=== PATIENT | female | born 1975 | race Caucasian/White ===

== ENCOUNTER 2020-08-24 21:34 | Emergency (ER) | payer OTHER ==
[~2020-08-24] VITALS: Ht 147.3 cm; Wt 99.8 kg
[~2020-08-24 21:34] MED LIST: ACETAMINOPHEN-1 EAC1 PO; AZITHROMYCIN 2250 MG PO; BETABLOCKER; BUTALB-APAP-CA1 EACH PO; CELEXA 20 MG TA20 MG; CELEXA 20 MG TA20 MG PO; CELEXA20 MG PO; FIORICET 50-321 EACH PO; LISINOPRIL20 MG PO; NOHOMEMEDICATIONS; ONDANSETRON HCL4 M2 PO; PHENERGAN 25 MG25 M1 PO; PROMETHAZINE V473 ML PO; PROVENTIL HFA6.7 G1 INH; TESSALON PERLE100 MG PO; TOPAMAX 25 MG T25 M1 PO; VICODIN 5-5001 EACH PO; WELLBUTRIN 75 M75 M1 PO; ZPAK PO
[2020-08-24] MEDS ORDERED: PROZAC 10 MG CA10 MG PO (21:50)
[2020-08-24] MEDS ORDERED: ALLEGRA ALLERGY60 MG PO (21:50)
[2020-08-24] MEDS ORDERED: FAMOTIDINE 20 M20 MG PO (21:50)
[2020-08-24] MEDS ORDERED: XYZAL5 MG PO (21:51)
[2020-08-24 22:14] LABS: INFLUENZA A ANTIGEN Negative (Negative); INFLUENZA B ANTIGEN Negative (Negative)
[2020-08-24] MEDS ORDERED: PHENERGAN 25 MG25 M1 PO (23:56)
[2020-08-24] MEDS ORDERED: ACETAMINOPHEN-1 EAC2 PO (23:56)
[2020-08-24] MEDS ORDERED: PREDNISONE50 MG PO (23:56)
[2020-08-25 00:04] VITALS: BP 166/82
== END 2020-08-25 00:04 | disposition home or self-care (01) ==
LOC: M.ERS 21:34
PROVIDERS: Personal Emergency Response Attendant
DX: B34.9 Viral infection, unspecified (principal); Z20.828 Contact with and (suspected) exposure to other viral communicable diseases; Z90.710 Acquired absence of both cervix and uterus; Z90.49 Acquired absence of other specified parts of digestive tract; Z98.890 Other specified postprocedural states; Z88.6 Allergy status to analgesic agent; Z88.0 Allergy status to penicillin; Z88.5 Allergy status to narcotic agent; Z88.8 Allergy status to other drugs, medicaments and biological substances